=== PATIENT | male | born 1955 | race Caucasian/White ===

== ENCOUNTER 2018-04-29 06:11 | Day surgery (SDC) ==
[2018-04-29] MEDS: BETADINE OPTH PREP OP PRN ×3 (06:30→07:30)
[2018-04-29] MEDS ORDERED: BSS WITH EPINEPHRINE OP ONE (06:30)
[2018-04-29] MEDS ORDERED: DEX-MOXI-KETOR OPTH INJ 1/0.5/0.4 MG/ML IO ONE (06:30)
[2018-04-29] MEDS ORDERED: BRIMONIDINE TARTRATE 0.2% OPTH SOL OP PRN (06:30)
[2018-04-29] MEDS ORDERED: LIDOCAINE 1%/PHENYLEPHRINE 1.5% BSS (SURGERY) INTRAOCULA ONE (06:30)
[2018-04-29] MEDS ORDERED: LIDOCAINE 1% 20 ML MDV ID STA (06:30)
[2018-04-29] MEDS ORDERED: ZOFRAN 4 MG/2 ML IVP ONE (06:30)
[2018-04-29] MEDS: TETRACAINE 0.5% UNIT-DOSE OP PRN ×2 (06:30→07:30)
[2018-04-29] MEDS: CYCLOGYL 2% OPTH OP PRN ×3 (06:31→06:41)
[2018-04-29 06:47] VITALS: TEMP 98.4
[2018-04-29] MEDS ORDERED: SUBLIMAZE ONE (07:36)
[2018-04-29] MEDS ORDERED: VERSED ONE (07:36)
[2018-05-07 14:07] VITALS: BP 121/56
== END 2018-04-29 08:25 | disposition home or self-care (01) ==
LOC: SURG 06:11
PROVIDERS: ATTEND Ophthalmology
DX: H25.811 Combined forms of age-related cataract, right eye (principal)

== ENCOUNTER 2018-05-13 06:05 | Day surgery (SDC) ==
[2018-05-13] MEDS: CYCLOGYL 2% OPTH OP PRN ×3 (06:25→06:35)
[2018-05-13] MEDS: TETRACAINE 0.5% UNIT-DOSE OP PRN ×3 (06:25→07:19)
[2018-05-13] MEDS: BETADINE OPTH PREP OP PRN ×2 (06:25→07:00)
[2018-05-13] MEDS ORDERED: LIDOCAINE 1%/PHENYLEPHRINE 1.5% BSS (SURGERY) INTRAOCULA ONE (06:29)
[2018-05-13] MEDS ORDERED: DEX-MOXI-KETOR OPTH INJ 1/0.5/0.4 MG/ML IO ONE (06:29)
[2018-05-13] MEDS ORDERED: LIDOCAINE 1% 20 ML MDV ID STA (06:29)
[2018-05-13] MEDS ORDERED: BRIMONIDINE TARTRATE 0.2% OPTH SOL OP PRN (06:29)
[2018-05-13] MEDS ORDERED: ZOFRAN 4 MG/2 ML IVP ONE (06:29)
[2018-05-13] MEDS ORDERED: BSS WITH EPINEPHRINE OP ONE (06:29)
[2018-05-13 06:43] VITALS: TEMP 98.4
[2018-05-13] MEDS ORDERED: ZOFRAN 4 MG/2 ML ONE (07:10)
[2018-05-13] MEDS ORDERED: SUBLIMAZE ONE (07:10)
[2018-05-13] MEDS ORDERED: VERSED ONE (07:10)
[2018-05-14 14:13] VITALS: BP 123/56
== END 2018-05-13 08:00 | disposition home or self-care (01) ==
LOC: SURG 06:05
PROVIDERS: ATTEND Ophthalmology
DX: H25.812 Combined forms of age-related cataract, left eye (principal)

== ENCOUNTER 2018-05-29 05:14 | Emergency (ER) ==
[2018-05-29 05:20] VITALS: TEMP 97.9; BMI 27.7
--- NOTE | 2018-05-29 05:58 | ED.PDOC ---
General ED Provider: Dr. DELLA BONILLA-ER Chief Complaint: Weakness Stated Complaint: i had a headache that started last night and then my left arm and left leg started to be weak Time Seen by Physician: 05:20 Mode of Arrival: Ambulance Information Source: Patient, Family, EMT Exam Limitations: No limitations Primary Care Provider: DELLA BONILLA Nursing and Triage Documentation Reviewed and Agree: Yes Does patient meet sepsis criteria?: No System Inflammatory Response Syndrome: Not Applicable Sepsis Protocol: For patient's 13 years and over: Temp is 96.8 and below OR 101 and greater Pulse >90 BPM Resp >20/minute Acutely Altered Mental Status Are patient's symptoms suggestive of a new infection, such as: -Pneumonia -Skin, Soft Tissue -Endocarditis -UTI -Bone, Joint Infection -Implantable Device -Acute Abdominal Infection -Wound Infection -Meningitis -Blood Stream Catheter Infection -Unknown - Neurological Deficit Complaint/Exam Patient Complains of: Reports: Muscle weakness Symptom Onset Unknown: No Symptom Onset Date: 05/28/18 Symptom Onset Time: 05:56 Onset: Sudden Symptoms Are: Still present Timing: Constant Initial Severity: Moderate Current Severity: Moderate Location: Reports: LUE, LLE Character: Reports: Numbness, Tingling, Motor weakness, Paralysis Alleviating: Reports: None Associated Signs and Symptoms: Reports: Headache CVA Risk Factors: Reports: Hypertension, Smoking, PVD SDH Risk Factors: Reports: Male Meningeal Signs Positive: No Focal Weakness: Present: LUE, LLE Gait: Normal Nystagmus Present: No Gag Reflex Present: Yes Heel to Toe Normal: No Signs of Trauma: No NIH Scale Score (see protocol): 0 IV t-PA Prescribed: No Reasons for not prescribing IV t-PA: Treatment refused by Pt Differential Diagnoses: CVA, TIA, Migraine Quality Indicator For Non-Traumatic Chest Pain/Syncope: EKG Performed Review of Systems - Review Of Systems Constitutional: Reports: No symptoms Eyes: Reports: No symptoms Ears, Nose, Mouth, Throat: Reports: No symptoms Respiratory: Reports: No symptoms Cardiac: Reports: No symptoms GI: Reports: No symptoms : Reports: No symptoms Musculoskeletal: Reports: No symptoms Skin: Reports: No symptoms Neurological: Reports: Headache Endocrine: Reports: No symptoms Hematologic/Lymphatic: Reports: No symptoms All Other Systems: Reviewed and Negative Past Medical History - Past Medical History Previously Healthy: No Endocrine: Reports: Other Cardiovascular: Reports: Hypertension Respiratory: Reports: Other Hematological: Reports: None Gastrointestinal: Reports: None Genitourinary: Reports: None Neuro/Psych: Reports: None Musculoskeletal: Reports: None Cancer: Reports: None - Surgical History General Surgical History: Reports: Unknown - Family History Family History: Reports: Unknown - Social History Smoking Status: Current every day smoker, Heavy tobacco smoker Hx Substance Use: No Alcohol Screening: Occasionally Lives: With family - Immunizations Tetanus Shot up to Date: Yes Physical Exam - Physical Exam Appearance: Well-appearing, No pain distress, Well-nourished Eyes: NENA, EOMI, Conjunctiva clear ENT: Ears normal Neck: Supple Respiratory: Airway patent Cardiovascular: RRR GI/: Soft Musculoskeletal: Normal strength Skin: Warm Neurological: Alert, Oriented Psychiatric: Affect appropriate, Mood appropriate, Anxious Interpretation - Radiology Interpretation Radiology Interpretation By: Radiologist Radiology Results: Positive Exam Interpreted: CT Scan - EKG Interpretation Time of EKG #1: 06:08 Rate: Normal Rhythm: Sinus Ectopy: None [place]: NL ST Segment: Normal Interpretation: nsr Re-Evaluation - Re-Evaluation Time of Re-Evaluation: 06:17 Status: Improved Vital Signs Stable: Yes Pain Level: 2 Appearance: NAD Lungs: Clear Skin: Warm and Dry Neuro: Alert and Oriented X3 CV: RRR Physician Notification - Case Discussed Physician Notified: dr gonzalez left message [facility] 6:05am Time of Notification: 06:17 Critical Care Note - Critical Care Note Total Time (mins): 0 Course - Course Hematology/Chemistry: 05/29/18 06:00 05/29/18 06:00 Orders, Labs, Meds: Lab Review 05/29/18 05/29/18 05/29/18 06:00 06:00 06:00 WBC 10.76 H RBC 4.43 L Hgb 16.0 Hct 44.5 MCV 100.5 H MCH 36.1 H MCHC 36.0 H RDW Coeff of Thelma 13.0 Plt Count 214 Immature Gran % (Auto) 0.5 Neut % (Auto) 72.5 Lymph % (Auto) 17.9 Winkler % (Auto) 7.0 Eos % (Auto) 1.3 Baso % (Auto) 0.8 Immature Gran # (Auto) 0.1 Neut # (Auto) 7.8 H Lymph # (Auto) 1.9 Winkler # (Auto) 0.8 Eos # (Auto) 0.1 Baso # (Auto) 0.1 ESR PT 9.7 INR 0.97 Sodium 139.7 Potassium 3.99 Chloride 105.3 Carbon Dioxide 27.8 Anion Gap 10.59 BUN 12.6 Creatinine 0.60 Estimated GFR (MDRD) 136.00 BUN/Creatinine Ratio 21.00 Glucose 109.6 H Calcium 9.61 Total Bilirubin 0.56 AST 34.2 ALT 13.5 Alkaline Phosphatase 77.6 Total Creatine Kinase 87.1 Troponin I < 0.012 Total Protein 7.27 Albumin 4.60 Globulin 2.67 Albumin/Globulin Ratio 1.72 05/29/18 06:00 WBC RBC Hgb Hct MCV MCH MCHC RDW Coeff of Thelma Plt Count Immature Gran % (Auto) Neut % (Auto) Lymph % (Auto) Winkler % (Auto) Eos % (Auto) Baso % (Auto) Immature Gran # (Auto) Neut # (Auto) Lymph # (Auto) Winkler # (Auto) Eos # (Auto) Baso # (Auto) ESR 2 PT INR Sodium Potassium Chloride Carbon Dioxide Anion Gap BUN Creatinine Estimated GFR (MDRD) BUN/Creatinine Ratio Glucose Calcium Total Bilirubin AST ALT Alkaline Phosphatase Total Creatine Kinase Troponin I Total Protein Albumin Globulin Albumin/Globulin Ratio Orders Category Date Time Status EKG-(ED ONLY) Stat CARDIO 05/29/18 05:35 Completed TRANSFER TO OUTSIDE FACILITY .TO [facility] 05/29/18 06:21 Active ([place], [place]) WRITE TRANSFER/SBAR NOTE ONCE CARE 05/29/18 06:21 Completed DISCHARGE ASSESSMENT ONCE DISCHARGE 05/29/18 06:21 Completed WRITE DISCHARGE NOTE ONCE DISCHARGE 05/29/18 06:21 Completed Advertising Operations Manager [ED RESEARCH PHARMACIST APPLIED] .ONCE EMERGENCY 05/29/18 05:40 Active IV [ED IV/MEDIPORT/POWERPORT] .ONCE EMERGENCY 05/29/18 06:30 Active CBC W/ AUTO DIFF Stat LAB 05/29/18 06:00 Completed COMPREHENSIVE METABOLIC PANEL Stat LAB 05/29/18 06:00 Completed CREATINE KINASE Stat LAB 05/29/18 06:00 Completed ESR Stat LAB 05/29/18 06:00 Completed PT WITH INR Stat LAB 05/29/18 06:00 Completed TROPONIN I Stat LAB 05/29/18 06:00 Completed 0.9 % Sodium Chloride [Saline Flush] MEDS 05/29/18 06:30 Discontinued 1 syr IVF PRN PRN CT HEAD W/O CONTRAST Stat RADS 05/29/18 05:35 Completed Medications Discontinued Medications Generic Name Dose Route Start Last Admin Trade Name Freq PRN Reason Stop Dose Admin Sodium Chloride 1 syr 05/29/18 06:30 Saline Flush IVF PRN PRN To flush IV Vital Signs: Temp Pulse Resp BP Pulse Ox 05/29/18 06:03 94 L 05/29/18 05:59 76 20 145/83 H 90 L 05/29/18 05:15 97.9 F 75 18 160/94 H 94 L - NIH Stroke Scale 1a. Level of Consciousness: 0=Alert and keenly responsive 1b. Level of Consciousness Questions: 0=Answers correctly to two questions 1c. Level of Consciousness Commands: 0=Performs two tasks correctly 2. Best Gaze: 0=Normal 3. Visual: 0=No visual loss 4. Facial Palsy: 0=Normal 5a. Motor Left Arm: 0=No drift,arm holds 90 degrees for 10 sec., leg 30 degrees for 5 sec. 5b. Motor Right Arm: 0=No drift,arm holds 90 degrees for 10 sec., leg 30 degrees for 5 sec. 6a. Motor Left Le=No drift,arm holds 90 degrees for 10 sec., leg 30 degrees for 5 sec. 6b. Motor Right Le=No drift,arm holds 90 degrees for 10 sec., leg 30 degrees for 5 sec. 7. Limb Ataxia: 0=Absent 8. Sensory: 0=Normal 9. Best Language: 0=No aphasia 10. Dysarthria: 0=Normal 11. Extincion and Inattention: 0=Normal Stroke Scale Total: 0 Stroke Checklist for Activase Younger than 18 years of age: No Stroke signs are rapidly improving: Yes Coma or stupor: No Seizure at the onset of stroke: No Clinic presentation suggestive of subarachnoid hemorrhage: No Intracranial hemorrhage on CT scan: No Puncture of a non-compressible artery or biopsy of any internal organ within the past 7 days: No Pericarditis, endocarditis, septic emboli, recent , or active inflammatory bowel disease: No Lactating or woman: No Stroke or severe head trauma within the previous 3 months: No Gastroenterology or urinary tract hemorrhage in the previous 21 days: No Lumbar puncture in the previous 7 days: No Any history of intracranial hemorrhage: No Patients with a serious medical illness: No Active drug or alcohol abuse: No Acute myocardial infarction or post-myocardial infarction pericarditis: No Evidence of tumor, major infarct, or early signs of cerebral edema on CT scan: No Departure - Departure Time of Disposition: 06:19 Disposition: TSF SHORT-TRM HOSP Discharge Problem: Headache Qualifiers: Headache type: unspecified Headache chronicity pattern: acute headache Intractability: not intractable Qualified Code(s): R51 - Headache Instructions: Acute Headache (ED) Condition: Good Pt referred to PMD for follow-up: Yes IPMP verified?: No Allergies/Adverse Reactions: Allergies No Known Allergies Allergy (Unverified 05/29/18 05:19) Home Medications: Ambulatory Orders Carbidopa/Levodopa [Carbidopa-Levo 10-100 mg Odt] 1 each PO DAILY 05/29/18 Clopidogrel Bisulfate [Clopidogrel] 75 mg PO DAILY 05/29/18 Gabapentin 600 mg PO BEDTIME 05/29/18 Hydrochlorothiazide 25 mg PO DAILY 05/29/18 Losartan/Hydrochlorothiazide [Losartan-Hctz 100-25 mg Tab] 100 mg PO DAILY 05/29 Nifedipine [Nifedipine ER] 30 mg PO DAILY 05/29/18 Simvastatin 80 mg PO BEDTIME 05/29/18 Valacyclovir HCl [Valacyclovir] 500 mg PO BID 05/29/18 Transfer Form Completed: Yes Disposition Discussed With: Patient, Family
[2018-05-29 06:04] VITALS: BP 145/83
--- NOTE | 2018-05-29 06:09 | CT ---
EXAM: CT head without contrast. HISTORY: Numbness. Left-sided weakness. PROCEDURE: Contiguous axial CT images of the head without contrast with coronal and sagittal reforma ts. 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 The ventricles are with in normal limits in size. The basal cisterns are normal in size and configuration. No evidence of m ass or midline shift. No intracranial hemorrhage. There is an ill-defined area of decreased attenua tion in the right parietal and right temporal lobes, suspicious for a subacute infarct. There are mi nimal chronic small vessel ischemic changes in the white matter. No extra-axial fluid collection. Th ere is minimal mucosal thickening in the ethmoid air cells. The mastoid air cells are normal in appe arance. Impression: Ill-defined area of decreased attenuation in the right parietal and right temporal lobes, suspicious for a subacute infarct. Consider MRI for further evaluation if clinically indicated. Minimal chronic small vessel ischemic changes. Diffuse cerebral atrophy.
== END 2018-05-29 07:10 | disposition short-term general hospital (02) ==
LOC: ED 05:14
DX: R51 Headache (principal); R53.1 Weakness; I10 Essential (primary) hypertension; F17.210 Nicotine dependence, cigarettes, uncomplicated; Z79.899 Other long term (current) drug therapy
CPT/HCPCS: 36415; 80053; 82550; 84484; 85025; 85610; 85651; 93005; 93010; 99285

== ENCOUNTER 2018-06-07 18:27 | Emergency (ER) ==
[2018-06-07 18:34] VITALS: BP 133/92; TEMP 96.2; BMI 27.4
[2018-06-07] MEDS ORDERED: SODIUM CHLORIDE 1,000 ML IV STA (19:13)
--- NOTE | 2018-06-07 19:17 | ED.PDOC ---
General ED Provider: Dr. ANGEL HAQUE Chief Complaint: Stroke Stated Complaint: Left arm numbness started 17:30 that lasted for 5 mins with numbess on the upper lip and mild numbness on the left leg, Denies any weakness. Symptoms of numbness gone. states had similar symptoms to when he had a stroke 9 days ago when he was sent to [facility]. He had MRI head and carodid US and also had an Bobble echo study. He was changed from Aspirin to plavix and quit smoking. He was called by [facility] for wellness and when he told them his symptoms he was told to come to the ER. Time Seen by Physician: 19:15 Mode of Arrival: Walk-In Information Source: Patient, Family Primary Care Provider: DELLA BONILLA Nursing and Triage Documentation Reviewed and Agree: Yes Does patient meet sepsis criteria?: No System Inflammatory Response Syndrome: Not Applicable Sepsis Protocol: For patient's 13 years and over: Temp is 96.8 and below OR 101 and greater Pulse >90 BPM Resp >20/minute Acutely Altered Mental Status Are patient's symptoms suggestive of a new infection, such as: -Pneumonia -Skin, Soft Tissue -Endocarditis -UTI -Bone, Joint Infection -Implantable Device -Acute Abdominal Infection -Wound Infection -Meningitis -Blood Stream Catheter Infection -Unknown Neurological Complaint Exam - Neurological Deficit Complaint/Exam Patient Complains of: Reports: Abnormal sensation Symptom Onset Unknown: No Symptom Onset Date: 06/07/18 Symptom Onset Time: 17:30 Onset: Sudden Symptoms Are: Resolved Timing: Intermittent Episodes Lasting: Minutes (5 mins) Current Severity: None Location: Reports: Facial (lip area ), LUE, LLE Character: Reports: Numbness, Paresthesia, Sensory loss. Denies: Motor weakness , Paralysis Aggravating: Reports: None Alleviating: Reports: None Associated Signs and Symptoms: Denies: Confusion, Agitation, Responsiveness, Headache, Nuchal rigidity, Recent trauma, Remote trauma, Recent illness Related History: Reports: Similar episode (9 days ago ) CVA Risk Factors: Reports: Hypertension, Smoking (but quit last week ) SDH Risk Factors: Reports: Male Glascow Coma Scale (see protocol): 15 Focal Weakness: Present: None Focal Sensory Loss: Present: None Gait: Normal Nystagmus Present: No Gag Reflex Present: No [id number]: Normal Findings Romberg Test Positive: No Babinski Sign: Negative Right, Negative Left Heel to Toe Normal: Yes Signs of Trauma: No NIH Scale Score (see protocol): 0 IV t-PA Prescribed: No Differential Diagnoses: Anxiety, CVA, TIA, Hypertension Quality Indicator For Non-Traumatic Chest Pain/Syncope: EKG Performed Review of Systems - Review Of Systems Constitutional: Reports: No symptoms Eyes: Reports: No symptoms Ears, Nose, Mouth, Throat: Reports: No symptoms Respiratory: Reports: No symptoms Cardiac: Reports: No symptoms GI: Reports: No symptoms : Reports: No symptoms Musculoskeletal: Reports: No symptoms Skin: Reports: No symptoms Neurological: Reports: Anxiety, Numbness, Tingling Endocrine: Reports: No symptoms Hematologic/Lymphatic: Reports: No symptoms All Other Systems: Reviewed and Negative Past Medical History - Past Medical History Previously Healthy: No Endocrine: Reports: None Cardiovascular: Reports: Hypertension Respiratory: Reports: Other Hematological: Reports: None Gastrointestinal: Reports: Other (ED) Genitourinary: Reports: None Neuro/Psych: Reports: CVA (recent 9 days ago ), Other (Restless leg syndrome ) Musculoskeletal: Reports: None Cancer: Reports: None - Surgical History General Surgical History: Reports: Other (stents to left leg, eye surgery for cataract) - Family History Family History: Reports: Unknown - Social History Smoking Status: Current some day smoker, Light tobacco smoker Hx Substance Use: No Alcohol Screening: Occasionally Physical Exam - Physical Exam Appearance: Well-appearing, No pain distress, Well-nourished Eyes: NENA, EOMI, Conjunctiva clear ENT: Ears normal, Nose normal, Oropharynx normal Respiratory: Airway patent, Breath sounds clear, Breath sounds equal, Respirations nonlabored Cardiovascular: RRR, Pulses normal, No rub, No murmur GI/: Soft, Nontender, No masses, Bowel sounds normal, No Organomegaly Musculoskeletal: Normal strength, ROM intact, No edema, No calf tenderness Skin: Warm, Dry, Normal color Neurological: Sensation intact, Motor intact, Reflexes intact, Cranial nerves intact, Alert, Oriented Psychiatric: Affect appropriate, Mood appropriate - NIH Stroke Scale 1a. Level of Consciousness: 0=Alert and keenly responsive 1b. Level of Consciousness Questions: 0=Answers correctly to two questions 1c. Level of Consciousness Commands: 0=Performs two tasks correctly 2. Best Gaze: 0=Normal 3. Visual: 0=No visual loss 4. Facial Palsy: 0=Normal 5a. Motor Left Arm: 0=No drift,arm holds 90 degrees for 10 sec., leg 30 degrees for 5 sec. 5b. Motor Right Arm: 0=No drift,arm holds 90 degrees for 10 sec., leg 30 degrees for 5 sec. 6a. Motor Left Le=No drift,arm holds 90 degrees for 10 sec., leg 30 degrees for 5 sec. 6b. Motor Right Le=No drift,arm holds 90 degrees for 10 sec., leg 30 degrees for 5 sec. 7. Limb Ataxia: 0=Absent 9. Best Language: 0=No aphasia 10. Dysarthria: 0=Normal 11. Extincion and Inattention: 0=Normal Stroke Scale Total: 0 Interpretation - Radiology Interpretation Radiology Interpretation By: Radiologist Radiology Results: No acute changes (No intracranial hemorrage or evidence of new large vessel infact. Old right parietal and right Temporal infact) Exam Interpreted: CT Scan - Etcher Enameling Rate: Normal Rhythm: Sinus Ectopy: None - EKG Interpretation Time of EKG #1: 19:11 Rate: Normal Rhythm: Sinus Ectopy: None [place]: NL ST Segment: Normal Interpretation: normal EKG Physician Notification - Case Discussed Physician Notified: Dr Warren Time of Notification: 20:16 (Transfer to [facility] ) Critical Care Note - Critical Care Note Total Time (mins): 45 Course - Course Hematology/Chemistry: 06/07/18 18:55 06/07/18 18:55 Orders, Labs, Meds: Lab Review 06/07/18 06/07/18 18:55 18:55 WBC 9.46 RBC 4.62 L Hgb 16.4 Hct 46.2 MCV 100.0 H MCH 35.5 H MCHC 35.5 H RDW Coeff of Thelma 12.3 Plt Count 219 Immature Gran % (Auto) 0.3 Neut % (Auto) 49.0 Lymph % (Auto) 32.9 [place] % (Auto) 10.5 H Eos % (Auto) 6.3 Baso % (Auto) 1.0 Immature Gran # (Auto) 0.0 Neut # (Auto) 4.6 Lymph # (Auto) 3.1 [place] # (Auto) 1.0 Eos # (Auto) 0.6 Baso # (Auto) 0.1 Sodium 139.8 Potassium 3.97 Chloride 103.0 Carbon Dioxide 30.2 H Anion Gap 10.57 BUN 14.6 Creatinine 0.62 Estimated GFR (MDRD) 131.00 BUN/Creatinine Ratio 23.54 Glucose 111.8 H Calcium 10.30 H Total Bilirubin 0.65 AST 26.6 ALT 40.0 Alkaline Phosphatase 70.2 Total Creatine Kinase 32.2 L Troponin I < 0.012 Total Protein 7.16 Albumin 4.64 Globulin 2.52 Albumin/Globulin Ratio 1.84 Orders Category Date Time Status EKG-(ED ONLY) Stat CARDIO 06/07/18 19:03 Completed ED BUSINESS TRANSFORMATION CONSULTANT APPLIED .ONCE EMERGENCY 06/07/18 19:13 Active ED IV/MEDIPORT/POWERPORT .ONCE EMERGENCY 06/07/18 19:13 Active CBC W/ AUTO DIFF Stat LAB 06/07/18 18:55 Completed COMPREHENSIVE METABOLIC PANEL Stat LAB 06/07/18 18:55 Completed CREATINE KINASE Stat LAB 06/07/18 18:55 Completed TROPONIN I Stat LAB 06/07/18 18:55 Completed 0.9 % Sodium Chloride [Saline Flush] MEDS 06/07/18 19:13 Discontinued 1 syr IVF PRN PRN Sodium Chloride 0.9% [Sodium Chloride] 1,000 ml MEDS 06/07/18 19:13 Discontinued IV 125 mls/hr CT HEAD W/O CONTRAST Stat RADS 06/07/18 19:03 Completed Medications Discontinued Medications Generic Name Dose Route Start Last Admin Trade Name Freq PRN Reason Stop Dose Admin Sodium Chloride 1,000 mls @ 125 mls/hr 06/07/18 19:13 06/07/18 19:41 Sodium Chloride IV 06/08/18 03:12 125 mls/hr .Q8H STA Administration Sodium Chloride 1 syr 06/07/18 19:13 Saline Flush IVF PRN PRN To flush IV Vital Signs: Temp Pulse Resp BP Pulse Ox 06/07/18 18:27 96.2 F L 76 16 133/92 H 92 L Departure - Departure Time of Disposition: 20:16 Disposition: AMA Discharge Problem: TIA (transient ischemic attack) Instructions: Transient Ischemic Attack (ED) Condition: Stable Pt referred to PMD for follow-up: Yes IPMP verified?: No Additional Instructions: IT IS POSSIBLE THAT YOU MAY HAVE ANOTHER MAJOR STROKE WHICH CAN LEAD TO . IT IS ADVISABLE THAT YOU BE ADMITTED. YOU ARE LEAVING AGAINST MEDICAL ADVISE FOLLOW UP WITH YOUR PCP OR RETURN OR CALL 911 IF YOU HAVE A CHANGE IN YOUR CONDITION CONTINUE HOME MEDICATIONS FOLLOW UP WITH PCP TOMORROW Allergies/Adverse Reactions: Allergies No Known Allergies Allergy (Verified 06/07/18 18:35) Home Medications: Ambulatory Orders Carbidopa/Levodopa [Carbidopa-Levo 10-100 mg Odt] 1 each PO DAILY 05/29/18 Clopidogrel Bisulfate [Clopidogrel] 75 mg PO DAILY 05/29/18 Gabapentin 600 mg PO BEDTIME 05/29/18 Hydrochlorothiazide 25 mg PO DAILY 05/29/18 Nifedipine [Nifedipine ER] 30 mg PO DAILY 05/29/18 Atorvastatin Calcium 80 mg PO BEDTIME 06/07/18 Losartan Potassium 100 mg PO DAILY 06/07/18 Sildenafil Citrate [Viagra] 100 mg PO DIRECTED PRN 06/07/18
--- NOTE | 2018-06-07 19:25 | CT ---
EXAM: CT head without contrast. HISTORY: Dizziness. Numbness left arm. Evaluate for stroke. PROCEDURE: Contiguous axial CT images of the head without contrast with coronal and sagittal reforma ts. FINDINGS: Comparison made with CT of 05/29/2018. There is a cavum septum pellucidum which is a conge nital variant. The ventricles are within normal limits in size. The basal cisterns are normal in si ze and configuration. No evidence of mass or midline shift. No intracranial hemorrhage or evidence of new large vessel infarct. There is an old infarct in the right temporal and posterior right parie flavio lobes. There are minimal chronic small vessel ischemic changes in the white matter. No extra-axi al fluid collection. The paranasal sinuses and mastoid air cells are well-aerated and normal in appea briseyda. Impression: No intracranial hemorrhage or evidence of new large vessel infarct. 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 Chronic small vessel ischemic changes. Diffuse cerebral atrophy. Critical result: Results discussed with the patient's ER physician on 06/07/2018 at 7:20 p.m.
== END 2018-06-07 20:50 | disposition left against medical advice (07) ==
LOC: ED 18:27
DX: G45.9 Transient cerebral ischemic attack, unspecified (principal); I10 Essential (primary) hypertension; Z72.0 Tobacco use; I63.9 Cerebral infarction, unspecified; Z79.899 Other long term (current) drug therapy
CPT/HCPCS: 36415; 80053; 82550; 84484; 85025; 93005; 93010; 96360; 99284